=== PATIENT | female | born 1950 | race Caucasian/White ===

== ENCOUNTER → 2016-11-05 | Day surgery (SDC) | payer MEDICARE ==
[~2016-11-05] VITALS: Ht 157.5 cm; Wt 122.2 kg
[~2016-11-05] MED LIST: ASPI-110 PO; ATEN50TA PO; CALC1TAB12 PO; CLOB0.055 TOPICAL; COZA100T PO; FAMOTIDINE 20 MG/2 ML VIAL ONE; GABA600T PO; GLIP5TAB8 PO; LACTATED RINGER'S 1000 ML INJ 1,000 ML ONE; LEVO-168 PO; METF1000 PO; METO2.5T PO; MIDAZOLAM HCL 2 MG/2 ML VIAL ONE; MULTTAB67 PO; OMEP20TA PO; ONDANSETRON HCL 4 MG/2 ML VIAL IV PUSH ONE; POTA10TA8 PO; PROPOFOL 200 MG/20 ML AMP IV ONE; SODIUM CHLOR 0.9% 250 ML INJ 250 ML ONE; TERB250T4 PO; TRIA40P I-ARTICULR; TRIAMCINOLONE ACETONIDE 40 MG/ML VIAL ONE; VANCOMYCIN HCL 1000 MG VIAL ONE; VITA250L BUCCAL; WALKER; ZOSTINJ SQ; ceFAZolin 2 GM PREMIX 50 ML ONE; fentaNYL CITRATE 250 MCG/5 ML AMP ONE
[2016-11-05 08:47] VITALS: BP 148/82; PULSE 71; RESP 16; TEMP 97.6; O2SAT 95
[2016-11-05] MEDS: BUPIVACAINE/EPINEPHRINE 0.5% PF 30 ML VIAL ONE ×2 (13:47→14:00)
[2016-11-05 15:40] VITALS: BP 140/74; PULSE 72; RESP 16; TEMP 98.2; O2SAT 95
--- NOTE | 2016-11-07 21:37 | MP ---
cc: LEBRON HUERTA M.D. DATE OF SURGERY November 05, 2016 SURGEON Lebron Huerta MD PREOPERATIVE DIAGNOSES 1. Osteoarthritis of the right knee joint. 2. Complex tear medial meniscus right knee joint. POSTOPERATIVE DIAGNOSES 1. Osteoarthritis of the right knee joint. 2. Complex tear medial meniscus right knee joint. PROCEDURES 1. Arthroscopic chondroplasty medial compartment. 2. Subtotal medial meniscectomy. 3. Partial synovectomy. PROCEDURE IN DETAIL The patient was placed first on the operating table in supine position. Adequate general anesthesia was administered by the anesthesiologist. Time-out was called. The patient's procedure, name, location, etc. were fully confirmed. The knee was prepped and draped in usual sterile fashion. An Esmarch bandage was applied and a pneumatic tourniquet was inflated to 300. An anterolateral portal was used for introduction of the inflow cannula system and the joint was distended with lactated Ringer's solution. A systematic examination of the joint revealed maximum degenerative osteoarthritis involving the medial compartment including the medial femoral condyle and medial tibial plateau. Also noted with severe complex tearing of the medial meniscus. The patella did show some early degenerative disease of grade 1 to 2. The synovium was also hypertrophied around the patellofemoral joint and all the way into the intercondylar fossa. The anterior cruciate ligament and posterior cruciate ligaments were intact but they work considerably frayed. The aggressive meniscal resector was placed into the medial compartment and a subtotal medial meniscectomy was performed. The chondroplasty of both the medial femoral condyle and the medial tibial plateau were carried out. She did have two large lesions all the way down to bone. The size of the lesions also appeared to be greater than 1-2 cm each. The lateral compartment was entered, examined and found to be intact. The articular surfaces did appear to be satisfactorily preserved but there did appear to be synovial thickening which was excised with the same resector. After thorough irrigation all instruments were removed. The two stab wounds were then closed with 3-0 nylon. An intra-articular injection of 10 mL of 0.5% Marcaine with epinephrine along with 1 mL of Kenalog was instilled within the knee joint. Xeroform gauze was applied over both wounds and a bulky sterile dressing applied over that, reinforced with Sam bandaging. The tourniquet was then deflated. Examination of the foot revealed adequate return of circulation. The procedure was tolerated well and the patient was transferred to the recovery room in satisfactory condition. Sponge count, needle counts and instrument counts were reportedly correct x2. MD AD Mohan/KK /2:07 PM /9:27 PM
== END | disposition home or self-care (01) ==
LOC: PHSDC 08:15
PROVIDERS: ATTEND Orthopaedic Surgery
DX: S83.231A Complex tear of medial meniscus, current injury, right knee, initial encounter (principal); M17.11 Unilateral primary osteoarthritis, right knee; I10 Essential (primary) hypertension
CPT/HCPCS: 01400; 29881; E0113; J0690; J2250; J2405; J3010; J3301; J3370; J7050; J7120